=== PATIENT | female | born 1950 | race Hispanic/Latino ===

== ENCOUNTER 2022-01-05 08:37 | Observation (INO) | payer OTHER, MEDICARE ==
[2022-01-04 14:12] LABS: BASOPHILS % (AUTO) 0.5 % (0.0-5.0); HEMATOCRIT 34.4 % (36-48); LYMPHOCYTES % (AUTO) 20.2 % (21.0-51.0); MEAN CORPUSCULAR HEMOGLOBIN 30.7 pg (27.0-33.0); MEAN CORPUSCULAR HGB CONC 32.8 g/dL (32.0-36.0); MEAN CORPUSCULAR VOLUME 93.5 fL (79-99); MONOCYTES % (AUTO) 6.9 % (3.0-13.0); PLATELET COUNT (AUTO) 199 K/uL (130-400); RED BLOOD CELL COUNT(AUTO) 3.68 MIL/uL (4.00-5.50); RED CELL DISTRIBUTION WIDTH 12.9 % (11.0-15.5); WHITE BLOOD COUNT (AUTO) 8.4 K/uL (4.8-10.8)
[2022-01-04 14:18] LABS: CREATININE 0.7 mg/dL (0.5-1.5); POTASSIUM 3.7 mmol/L (3.5-5.1)
[2022-01-04 14:21] LABS: PROTHROMBIN TIME 10.9 SEC (9.6-11.6)
[2022-01-04 14:23] LABS: PARTIAL THROMBOPLASTIN TIME 26.5 SEC (26.3-35.5)
[2022-01-04 15:15] VITALS: BP 146/67
[~2022-01-05] VITALS: Ht 157.5 cm; Wt 90.5 kg
[2022-01-05] VITALS (23 sets, daily range): BP systolic 87–143; BP diastolic 47–83
[~2022-01-05 08:37] MED LIST: ACET1TAB25 PO; ATOR40TA69 PO; CELE-84 PO; CHOL-34 PO; FISH1CAP50 PO; MULT-1367 PO; ZINC50TA15 PO
[2022-01-05] MEDS ORDERED: LACTATED RINGERS 1000ML 1,000 ML IV ONE (08:59)
[2022-01-05] MEDS: CEFAZOLIN SODIUM 1 GM VIAL IVP SCH ×4 (09:00→23:39)
[2022-01-05] MEDS ORDERED: LIDOCAINE HCL-MPF 1% 2ML VIAL IV PRN (11:00)
[2022-01-05] MEDS ORDERED: ONDANSETRON 4MG INJ IVP PRN (11:00)
[2022-01-05] MEDS ORDERED: POTASSIUM CHLORIDE 20MEQ/100ML 100 ML IV PRN (11:00)
[2022-01-05] MEDS ORDERED: POTASSIUM CHLORIDE 10% ELIXIR 20 MEQ/15 ML UDCUP PO PRN (11:00)
[2022-01-05] MEDS ORDERED: HYDROCODONE/ACETAMINOPHEN 5/325 MG TAB PO PRN (11:00)
[2022-01-05] MEDS: ACETAMINOPHEN 500 MG TABLET PO SCH ×2 (11:00→17:53)
[2022-01-05] MEDS ORDERED: KCL 20 MEQ ERTAB PO PRN (11:00)
[2022-01-05] MEDS ORDERED: MORPHINE 4 MG SYG IVP PRN (11:00)
[2022-01-05] MEDS: TRAMADOL HCL 50 MG TABLET PO SCH ×3 (12:00→23:39)
[2022-01-05] MEDS ORDERED: DEXAMETHASONE SOD PHOSPHATE 10MG/ML 1ML VIAL ONE (12:38)
[2022-01-05] MEDS ORDERED: EPHEDRINE SULFATE 50 MG/ML AMPULE ONE (12:48)
[2022-01-05] MEDS ORDERED: TRANEXAMIC ACID 1000MG/10ML ONE (14:12)
[2022-01-05] MEDS ORDERED: NEOSTIGMINE 5MG/5ML SYR IV ONE (14:42)
[2022-01-05] MEDS ORDERED: GLYCOPYRROLATE 1 MG/5 ML SYRINGE ONE (14:42)
[2022-01-05] MEDS: 0.9%NACL 1000ML 1,000 ML IV SCH ×2 (17:53→19:49)
[2022-01-05] MEDS: CELECOXIB 200 MG CAP PO SCH (19:43)
[2022-01-05] MEDS: FAMOTIDINE 20MG TAB PO SCH (19:43)
[2022-01-06] VITALS: BP 135/72
[2022-01-06] MEDS: ACETAMINOPHEN 500 MG TABLET PO SCH ×2 (02:13→11:00)
[2022-01-06] MEDS: HYDROCODONE/ACETAMINOPHEN 10/325 MG TAB PO PRN ×2 (03:10→09:09)
[2022-01-06 04:00] VITALS: BP 123/67
[2022-01-06 04:23] LABS: HEMATOCRIT 32.9 % (36-48); MEAN CORPUSCULAR HEMOGLOBIN 30.8 pg (27.0-33.0); MEAN CORPUSCULAR HGB CONC 32.8 g/dL (32.0-36.0); MEAN CORPUSCULAR VOLUME 93.7 fL (79-99); RED BLOOD CELL COUNT(AUTO) 3.51 MIL/uL (4.00-5.50); RED CELL DISTRIBUTION WIDTH 12.9 % (11.0-15.5); WHITE BLOOD COUNT (AUTO) 11.7 K/uL (4.8-10.8)
[2022-01-06 04:33] LABS: CREATININE 0.6 mg/dL (0.5-1.5)
[2022-01-06] MEDS: TRAMADOL HCL 50 MG TABLET PO SCH ×2 (05:09→12:00)
[2022-01-06] MEDS: 0.9%NACL 1000ML 1,000 ML IV SCH (07:00)
[2022-01-06 08:00] VITALS: BP 144/66
[2022-01-06] MEDS ORDERED: POLYETHYLENE GLYCOL 3350 17 GM POWD.PACK PO SCH (09:00)
[2022-01-06] MEDS ORDERED: FLUCONAZOLE 100 MG TAB PO SCH (09:00)
[2022-01-06] MEDS: FAMOTIDINE 20MG TAB PO SCH (09:08)
[2022-01-06] MEDS: CELECOXIB 200 MG CAP PO SCH (09:08)
[2022-01-06 11:00] VITALS: BP 105/57
[2022-01-08] MEDS ORDERED: BISACODYL 10 MG SUPP.RECT RC PRN (11:00)
== END 2022-01-06 15:20 | disposition home or self-care (01) ==
LOC: DAH 08:37 → DAHIP 08:38 → 4DH 16:15
PROVIDERS: ADMIT Orthopaedic Surgery; ATTEND Orthopaedic Surgery
DX: S42.202A Unspecified fracture of upper end of left humerus, initial encounter for closed fracture (principal); Z20.822 Contact with and (suspected) exposure to COVID-19; S42.292A Other displaced fracture of upper end of left humerus, initial encounter for closed fracture; M25.512 Pain in left shoulder; L22 Diaper dermatitis; E78.00 Pure hypercholesterolemia, unspecified; E66.9 Obesity, unspecified; Z68.36 Body mass index [BMI] 36.0-36.9, adult; W01.0XXA Fall on same level from slipping, tripping and stumbling without subsequent striking against object, initial encounter; Y93.K1 Activity, walking an animal; Y92.89 Other specified places as the place of occurrence of the external cause; Y99.8 Other external cause status
CPT/HCPCS: 23472; 36415 ×2; 64415; 73030; 76942; 80048 ×2; 85025; 85027; 85610; 85730; 87635; 87641; 93005; 96374; 96375; 96376; 97039; 97161; 97530; A4213; A4215; A4221; A4222; A4223; A4649 ×3; A4663; A6207; A6223; A6260; C1713; C1776; C9803; G0378 ×24; J0690 ×3; J1100; J2270; J2710; J3490 ×3; J7030; J7120